=== PATIENT | female | born 1990 | race Caucasian/White ===

== ENCOUNTER → 2020-10-16 13:55 | Outpatient (CLI) | payer OTHER, SELFPAY ==
[2020-10-16 14:43] LABS: Adenovirus,PCR Not Detected (NotDetected); Bordetella Pertussis Not Detected (NotDetected); Chlamydophila Pneumoniae, PCR Not Detected (NotDetected); Coronavirus 19, PCR Not Detected (NotDetected); Coronavirus 229E Not Detected (NotDetected); Coronavirus NL63 Not Detected (NotDetected); Coronavirus OC43 Not Detected (NotDetected); Coronovirus HKU1,PCR Not Detected (NotDetected); Human Metapneumovirus Not Detected (NotDetected); Influenza A, PCR Not Detected (NotDetected); Influenza AH1, 2009 Not Detected (NotDetected); Influenza AH1, PCR Not Detected (NotDetected); Influenza AH3,PCR Not Detected (NotDetected); Influenza B, PCR Not Detected (NotDetected); Mycoplasma Pneumoniae, PCR Not Detected (NotDetected); Parainfluenza 1, PCR Not Detected (NotDetected); Parainfluenza 2, PCR Not Detected (NotDetected); Parainfluenza 3, PCR Not Detected (NotDetected); Parainfluenza 4, PCR Not Detected (NotDetected); Respiratory Syncytial Virus Not Detected (NotDetected); Rhinovirus/Enterovirus Not Detected (NotDetected)
== END ==
PROVIDERS: PCP Internal Medicine Adolescent Medicine; Visit Provider Nurse Practitioner Psychiatric/Mental Health
DX: Z03.818 Encounter for observation for suspected exposure to other biological agents ruled out (principal)
CPT/HCPCS: 87581; 87633; 87798; U0003

== ENCOUNTER → 2021-05-23 10:42 | Outpatient (CLI) | payer OTHER, SELFPAY ==
--- NOTE | 2021-05-23 10:45 | XR_ITS ---
PROCEDURE: XR FOOT WT BEARING LT 3V CLINICAL INDICATION: pain COMPARISON: No exams were available for comparison FINDINGS: No fracture or dislocation. No lytic or blastic change. There is normal mineralization. The joint spaces are well-preserved. No significant degenerative/arthritic changes. No erosive changes evident. Other findings:There is minimal hallux valgus with mild bunion formation/hypertrophy at the distal aspect of the 1st metatarsal. There is a small calcaneal IMPRESSION: Minimal hallux valgus bunion formation Dictated by: Luke Greenfield MD 05/23/2021 11:11 Luke Greenfield MD in [place] 05/23/2021 11:11
--- NOTE | 2021-05-23 10:45 | XR_ITS ---
PROCEDURE: XR ANKLE WT BEARING LT MIN 3V CLINICAL INDICATION: pain and instability COMPARISON: No exams were available for comparison FINDINGS: Bones: No fracture or dislocation. No lytic or blastic change. There is normal mineralization. Joints: The joint spaces are well-preserved. No significant degenerative/arthritic changes. No erosive changes evident. Other findings:None. IMPRESSION: No acute findings. Dictated by: Luke Greenfield MD 05/23/2021 11:10 Luke Greenfield MD in [facility] 05/23/2021 11:10
--- NOTE | 2021-05-23 10:45 | XR_ITS ---
PROCEDURE: XR ANKLE WT BEARING RT MIN 3V CLINICAL INDICATION: pain and instability COMPARISON: No exams were available for comparison FINDINGS: Bones: No fracture or dislocation. No lytic or blastic change. There is normal mineralization. Joints: The joint spaces are well-preserved. No significant degenerative/arthritic changes. No erosive changes evident. Other findings:None. IMPRESSION: No acute findings. Dictated by: Luke Greenfield MD 05/23/2021 11:09 Luke Greenfield MD in [facility] 05/23/2021 11:09
--- NOTE | 2021-05-23 10:45 | XR_ITS ---
PROCEDURE: XR FOOT WT BEARING RT 3V CLINICAL INDICATION: pain COMPARISON: No exams were available for comparison FINDINGS: No fracture or dislocation. No lytic or blastic change. There is normal mineralization. There is moderate hallux valgus with bunion formation. Other findings:None. IMPRESSION: Hallux valgus otherwise negative Dictated by: Luke Greenfield MD 05/23/2021 11:10 Luke Greenfield MD in [facility] 05/23/2021 11:10
== END ==
PROVIDERS: PCP Internal Medicine Adolescent Medicine; Visit Provider Nurse Practitioner
DX: M25.571 Pain in right ankle and joints of right foot (principal); M25.572 Pain in left ankle and joints of left foot
CPT/HCPCS: 73610; 73630

== ENCOUNTER → 2021-09-24 09:05 | Outpatient (CLI) | payer OTHER, SELFPAY ==
[2021-09-24 09:25] LABS: Coronavirus 19, PCR Not Detected (NotDetected); Influenza A, PCR Not Detected (NotDetected); Influenza B, PCR Not Detected (NotDetected)
== END ==
PROVIDERS: PCP Radiology Diagnostic Radiology; Visit Provider Nurse Practitioner
DX: Z20.822 Contact with and (suspected) exposure to COVID-19 (principal)
CPT/HCPCS: C9803; U0003; U0005

== ENCOUNTER → 2021-09-28 14:49 | Outpatient (CLI) | payer OTHER, SELFPAY ==
[2021-09-28 15:16] LABS: Coronavirus 19, PCR Not Detected (NotDetected); Influenza A, PCR Not Detected (NotDetected); Influenza B, PCR Not Detected (NotDetected)
== END ==
PROVIDERS: PCP Internal Medicine Adolescent Medicine; Visit Provider Nurse Practitioner
DX: Z20.822 Contact with and (suspected) exposure to COVID-19 (principal)
CPT/HCPCS: C9803; U0003; U0005

== ENCOUNTER → 2021-10-08 13:32 | Outpatient (CLI) | payer OTHER, SELFPAY ==
[2021-10-08 14:13] LABS: Influenza A, PCR Not Detected (NotDetected); Influenza B, PCR Not Detected (NotDetected)
[2021-10-08 16:01] LABS: Coronavirus 19, PCR Detected (NotDetected)
== END ==
PROVIDERS: PCP Radiology Diagnostic Radiology; Visit Provider Nurse Practitioner
DX: Z20.822 Contact with and (suspected) exposure to COVID-19 (principal); U07.1 COVID-19
CPT/HCPCS: C9803; U0003; U0005

== ENCOUNTER 2023-02-11 13:27 | Emergency (ER) | payer OTHER, SELFPAY ==
[2023-02-11 13:28] VITALS: BP 166/89; PULSE 75; RESP 18; TEMP 37; O2SAT 100; BMI 34.3
--- NOTE | 2023-02-11 13:45 | HMH.EDGENADL ---
Discharge Plan Disposition Patient Disposition: Home, Self-Care Prescriptions Prescriptions: No Action sertraline [Zoloft] 50 mg tablet 50 mg PO DAILY Qty: 90 0RF dextroamphetamine-amphetamine [Adderall XR] 25 mg capsule,extended release 24hr 25 mg PO DAILY Qty: 30 0RF Referrals Follow up/Referrals: Joshua Major MD [Primary Care Provider] - See instructions Activity Restrictions/Add. Instructions Additional Instructions/Restrictions: If you continue to have epigastric abdominal pain following eating I would follow-up with a class a regional truck driver for possible EGD. Return to the emergency department 12 to 24 hours with persistent or worsening symptoms as there remains diagnostic uncertainty but no obvious surgical emergency or abdominal emergency was found today's visit. Clinical Impressions Clinical Impression: Nonspecific abdominal pain Instructions Patient Instructions: DI for Acute Abdominal Pain Discharge ED Provider: Dakota Waters General Adult HPI General Chief complaint: Abdominal Pain Stated complaint: Severe abd pain Time Seen by Provider: 02/11/23 13:46 History of Present Illness HPI narrative: 32-year-old female presenting with abdominal pain. States has been ongoing since last weekend and slowly worsening over last 5 days. Epigastric in location radiating into her bilateral shoulder blades. Denies any laterality to this. She has noticed some pain after eating. No hematemesis or melena noted. No history of peptic ulcer disease or reflux that she is aware of. Denies any lower abdominal discomfort. Denies any changes in bowel movements urination or any vaginal bleeding or vaginal discharge. Has had some nausea and vomiting. No fevers or chills no chest pain or shortness of breath. No history of pancreatitis alcoholism hypertriglyceridemia or any other abnormalities associate with her pancreas. Related Data Previous Rx's Medication Instructions Recorded sertraline 50 mg tablet (Zoloft) 50 mg PO DAILY #90 tabs 11/13/22 dextroamphetamine-amphetamine ER 25 mg PO DAILY #30 caps 01/13/23 25 mg 24hr capsule,extend release (Adderall XR) Allergies Allergy/AdvReac Type Severity Reaction Status Date / Time No Known Drug Allergies Allergy Unknown Verified 11/18/22 13:33 [facility] Disclaimer: The information contained in this section may have been updated after the patient was seen, as this information can be updated by other users. Medical History (Updated 02/11/23 @ 17:03 by Dakota Waters MD) Attention deficit disorder (ADD) in adult Major depressive disorder Social History (Updated 11/18/22 @ 13:35 by Laura Nance APRN) Smoking Status: Never smoker alcohol intake: never substance use type: denies use current occupational status: employed Travel in the last 8 weeks: None number of children: 2 ROS Obtained: Yes All systems reviewed & no additional complaints except as documented Physical Exam General General appearance: alert and in no apparent distress Respiratory Respiratory exam: Present normal lung sounds bilaterally; Absent respiratory distress, wheezes or stridor Cardiovascular Cardiovascular exam: Present regular rate; Absent tachycardia Abdominal Exam Abdominal exam: Present soft and other (Tender to palpation mid epigastrium no rebound or guarding no right upper quadrant tenderness or tenderness elsewhere in her abdomen. Otherwise soft nontender nondistended no masses noted) Neurological Exam Neurological exam: Present alert and oriented X3 Medical Decision Making Liam Inquiry Pt receiving controlled substance: No Vital Signs: 02/11/23 13:28 02/11/23 14:32 02/11/23 15:01 Temperature 98.6 F Temperature Source Oral Pulse Rate 71 68 Pulse Rate [Right Radial] 75 Respiratory Rate 18 Blood Pressure 134/95 H 126/63 Blood Pressure [Right Arm] 166/89 H Blood Pressure Mean 122 78 Blood Pressure Mean [Right Arm] 114
--- NOTE | 2023-02-11 13:46 | PC.NURSE ---
SASCHA JUDGE at
[2023-02-11 14:05] LABS: Chloride 101 mmol/L (98-107); Sodium 138 mmol/L (136-145)
--- NOTE | 2023-02-11 14:06 | PC.NURSE ---
lights turned down in room, pt given warm blanket, call light within reach, pt aware of need of urine specimen
[2023-02-11 14:07] LABS: Alanine Aminotransferase 19 U/L (12-78); Aspartate Amino Transferase 29 U/L (14-36); Blood Urea Nitrogen 12 mg/dl (7-17); Creatinine Clearance Estimated 147 mL/min (50-200); Estimated Glomerular Filt Rate 84 ml/min (>60); GFR (African American) 102 ML/MIN (>60)
[2023-02-11 14:08] LABS: Albumin Level 4.5 g/dl (3.5-5.0); Albumin/Globulin Ratio 1.6 (1.1-1.8); Alkaline Phosphatase 54 U/L (38-126); Bilirubin,Total 0.6 mg/dl (0.2-1.3); Calcium 9.4 mg/dl (8.4-10.2); Carbon Dioxide 33 mmol/L (22.0-30.0); Globulin 2.9 g/dL (1.3-3.2); Glucose 91 mg/dl (74-100); Lipase 121 U/L (23-300); Total Protein,Serum 7.4 g/dl (6.3-8.2)
[2023-02-11 14:14] LABS: Basophils # 0.1 K/mm3 (0-0.2); Basophils % 1.1 % (0.1-2.0); Eosinophils # 0.1 K/mm3 (0.0-0.4); Eosinophils % 1.1 % (0.1-12.0); Hematocrit 42.3 % (37.0-47.0); Hemoglobin 13.8 g/dL (12.2-16.2); Lymphocytes # 2.5 K/mm3 (0.7-4.5); Lymphocytes % 40.3 % (10-50); Mean Corpuscular HGB Conc 32.6 g/dL (31.8-35.4); Mean Corpuscular Hemoglobin 32.4 pg (27.0-31.2); Mean Corpuscular Volume 99.2 fl (81-99); Mean Platelet Volume 7.8 fl (7.4-10.4); Monocytes # 0.4 K/mm3 (0.1-1.0); Monocytes % 5.7 % (1.7-9.3); Neutrophils # 3.3 K/mm3 (1.8-7.8); Neutrophils % 51.8 % (37.0-80.0); Platelet Count 274 K/mm3 (142-424); Red Blood Count 4.26 M/mm3 (4.20-5.40); White Blood Count 6.3 K/mm3 (4.8-10.8)
[2023-02-11 14:32] VITALS: BP 134/95; PULSE 71; O2SAT 100
--- NOTE | 2023-02-11 14:50 | PC.NURSE ---
checked on pt at this time, pt reports no improvement in symptoms. notified ER
[2023-02-11 15:01] VITALS: BP 126/63; PULSE 68; O2SAT 100
--- NOTE | 2023-02-11 15:08 | CT_ITS ---
PROCEDURE INFORMATION: Exam: CT Abdomen And Pelvis With Contrast Exam date and time: 02/11/2023 4:09 PM Age: 32 years old Clinical indication: Generalized; Prior surgery; Surgery date: 6+ months; Surgery type: (x2); Patient HX: Abdominal pain all over x 1 wk w C/O nausea. PT states the pain radiates around to her upper back. ; Additional info: Epigastric pain TECHNIQUE: Imaging protocol: Computed tomography of the abdomen and pelvis with contrast. Radiation optimization: All CT scans at this facility use at least one of these dose optimization techniques: automated exposure control; mA and/or kV adjustment per patient size (includes targeted exams where dose is matched to clinical indication); or iterative reconstruction. Contrast material: ISOVUE; Contrast volume: 70 ml; Contrast route: IV; REPORTING DATA: Count of CT and Cardiac NM exams in prior 12 months: This patient has received 0 known CTs and 0 known cardiac nuclear medicine studies in the 12 months prior to the current study. COMPARISON: No relevant prior studies available. FINDINGS: Lungs: Lung bases are unremarkable. Liver: No focal hepatic lesions. Gallbladder and bile ducts: Gallbladder is distended without radiopaque cholelithiasis. No biliary ductal dilation. Pancreas: No peripancreatic fluid stranding. No main pancreatic ductal dilation. Spleen: No splenomegaly. Adrenal glands: The adrenal glands are normal. Kidneys and ureters: Nephrograms are symmetric. No nephrolithiasis or hydroureteronephrosis on either side. No solid lesions Stomach and bowel: Distal small bowel loops are fluid filled which can be seen in the context of enteritis. Appendix: A normal appendix is identified. Intraperitoneal space: There is no evidence of free intraperitoneal or pelvic fluid. Vasculature: Aorta is nonaneurysmal. Lymph nodes: No evidence of retroperitoneal or mesenteric lymphadenopathy. Urinary bladder: Urinary bladder is unremarkable. Reproductive: Unremarkable as visualized. Bones/joints: Unremarkable. No acute fracture. Soft tissues: Unremarkable. IMPRESSION: Distal small bowel loops are fluid filled which can be seen in the context of enteritis.
[2023-02-11 15:31] VITALS: BP 120/48; PULSE 90; O2SAT 99
[2023-02-11 15:33] LABS: HCG Qualitative, Serum Negative (Negative)
--- NOTE | 2023-02-11 16:05 | PC.NURSE ---
contacted rad to check on status of ct scan, states they were waiting on test to result. Serum test is resulted in the computer. Maryam states will be over to take pt to CT
[2023-02-11 16:07] LABS: Microscopic, Urine URINE MICROSCOPIC (MICROSCOPIC)
[2023-02-11 16:10] LABS: Appearance,Urine CLEAR (Clear); Bilirubin,Urine Negative (Negative); Blood, Urine Negative (Negative); Color,Urine YELLOW (Yellow); Glucose,Urine (UA) Negative (Negative); Ketones,Urine Negative (Negative); Leukocyte Esterase,Urine Negative (Negative); Nitrate,Urine Negative (Negative); Protein,Urine Negative (Negative); Urobilinogen,Urine 0.2 EU/dl (0.2)
--- NOTE | 2023-02-11 16:46 | PC.NURSE ---
contacted rad to check on status of ct result. states [facility]rad is in reading the scan now
--- NOTE | 2023-02-11 16:47 | PC.NURSE ---
checked on pt at this time, updated pt scan is being read now. visitor at bs. Pt states no needs at this time, reports still having pain when i offered to ask er md for more pain medication, pt reports does not want any more pain medication at this time.
[2023-02-11 16:50] LABS: Urine Pregnancy, HCG Qual. Negative (Negative)
[2023-02-11 16:50] LABS: RBC,Urine Occasional #/hpf (0-3); WBC,Urine Occasional #/hpf (0-3)
[2023-02-11 17:27] VITALS: BP 134/80; PULSE 84; RESP 18; TEMP 37; O2SAT 100
== END 2023-02-11 17:27 | disposition home or self-care (01) ==
PROVIDERS: Emergency Provider Student in an Organized Health Care Education/Training Program; PCP Internal Medicine Adolescent Medicine
DX: R10.13 Epigastric pain (principal); F90.9 Attention-deficit hyperactivity disorder, unspecified type; F33.9 Major depressive disorder, recurrent, unspecified
CPT/HCPCS: 74177; 80053; 81001; 81025; 83690; 84703; 85025; 96361; 96374; 96375; 99284; 99285; J2405; Q9967

== ENCOUNTER → 2023-03-03 09:22 | Outpatient (CLI) | payer OTHER, SELFPAY ==
--- NOTE | 2023-03-03 09:25 | US_ITS ---
FINAL REPORT CLINICAL HISTORY: abd pain after eating FINDINGS: ULTRASOUND RIGHT UPPER QUADRANT Sonographic imaging of the right upper quadrant was obtained. The pancreas is partially obscured. The liver is unremarkable. There are several folds in the gallbladder. There is no evidence of gallstones. There is no gallbladder wall thickening. There is no biliary ductal dilatation. The common duct is normal at 4 mm. Limited images of the right kidney are unremarkable. IMPRESSION: Pancreas not well visualized. No gallstones. Reviewed, Interpreted and Dictated by Flroentin Marcus MD Transcribed by Afia Batista Authenticated and [facility]
== END ==
LOC: RAD 09:22
PROVIDERS: PCP Internal Medicine Adolescent Medicine; Visit Provider Nurse Practitioner
DX: R10.9 Unspecified abdominal pain (principal); R11.2 Nausea with vomiting, unspecified
CPT/HCPCS: 76705

== ENCOUNTER → 2023-03-10 06:13 | Outpatient (CLI) | payer OTHER, SELFPAY ==
--- NOTE | 2023-03-10 06:14 | NM_ITS ---
FINAL REPORT CLINICAL HISTORY: abd pain neg u/s gb 6:35 am 8.17 mci tc choletec 7:47 am 1.8 mcg of cck injected into rt ant no pain during cck FINDINGS: Sequential anterior projection images of the abdomen were obtained after the intravenous injection of 8.17 mCi technetium 99m Choletec. There is normal uptake of radiotracer by the liver. The bile ducts are visualized by 5 minutes. Gallbladder activity is seen by 5 minutes. Bowel activity is noted by 35 minutes. After 1 hour, 1.0 ?g of CCK was injected intravenously for calculation of gallbladder ejection fraction. The gallbladder ejection fraction is 98 %, which is within normal limits. IMPRESSION: No evidence of cystic duct or bile duct obstruction. Normal gallbladder ejection fraction of 98 %. Reviewed, Interpreted and Dictated by Sg Young III, MD Transcribed by Hawa Pollack Authenticated and [facility]
[2023-03-10 09:50] LABS: Urine Pregnancy, HCG Qual. Negative (Negative)
[2023-03-10 09:55] LABS: Basophils % 0.8 % (0.1-2.0); Eosinophils # 0.1 K/mm3 (0.0-0.4); Eosinophils % 1.5 % (0.1-12.0); Hematocrit 43.4 % (37.0-47.0); Hemoglobin 14.3 g/dL (12.2-16.2); Lymphocytes # 2.1 K/mm3 (0.7-4.5); Lymphocytes % 39.1 % (10-50); Mean Corpuscular HGB Conc 32.9 g/dL (31.8-35.4); Mean Corpuscular Hemoglobin 32.6 pg (27.0-31.2); Mean Corpuscular Volume 99.2 fl (81-99); Mean Platelet Volume 7.8 fl (7.4-10.4); Monocytes # 0.3 K/mm3 (0.1-1.0); Monocytes % 5.1 % (1.7-9.3); Neutrophils # 2.9 K/mm3 (1.8-7.8); Neutrophils % 53.4 % (37.0-80.0); Platelet Count 262 K/mm3 (142-424); Red Blood Count 4.38 M/mm3 (4.20-5.40); Red Cell Distribution Width 12.9 % (11.5-17.5); White Blood Count 5.4 K/mm3 (4.8-10.8)
[2023-03-10 10:07] LABS: Alanine Aminotransferase 17 U/L (12-78); Albumin Level 4.3 g/dl (3.5-5.0); Albumin/Globulin Ratio 1.5 (1.1-1.8); Alkaline Phosphatase 59 U/L (38-126); Anion Gap 6.1 mEq/L (5-15); Aspartate Amino Transferase 25 U/L (14-36); Bilirubin,Total 0.5 mg/dl (0.2-1.3); Blood Urea Nitrogen 13 mg/dl (7-17); Calcium 8.7 mg/dl (8.4-10.2); Carbon Dioxide 30 mmol/L (22.0-30.0); Chloride 103 mmol/L (98-107); Estimated Glomerular Filt Rate 98 ml/min (>60); GFR (African American) 119 ML/MIN (>60); Globulin 2.8 g/dL (1.3-3.2); Glucose 86 mg/dl (74-100); Potassium 4.1 mmoL/L (3.5-5.1); Sodium 135 mmol/L (136-145); Total Protein,Serum 7.1 g/dl (6.3-8.2)
== END ==
PROVIDERS: PCP Internal Medicine Adolescent Medicine; Visit Provider Surgery
DX: R10.9 Unspecified abdominal pain (principal); R11.2 Nausea with vomiting, unspecified
CPT/HCPCS: 36415; 78227; 80053; 81025; 85025; A9537; J2805

== ENCOUNTER 2023-03-11 07:13 | Day surgery (SDC) | payer OTHER, SELFPAY ==
[2023-03-10 14:47] VITALS: BMI 34.3
[2023-03-11] VITALS (10 sets, daily range): BP systolic 113–148; BP diastolic 60–78; PULSE 60–97; RESP 16–18; TEMP 36.4–43; O2SAT 93–100
--- NOTE | 2023-03-11 07:30 | EXP.ANES.CKL ---
[facility] Disclaimer: The information contained in this section may have been updated after the patient was seen, as this information can be updated by other users. Medical History Attention deficit disorder (ADD) in adult Major depressive disorder Nausea & vomiting Surgical History History of Family History Other Family history of COPD (chronic obstructive pulmonary disease) Family history of cancer Family history of gallbladder disease Social History Smoking Status: Never smoker alcohol intake: current counseling given: No substance use type: denies use current occupational status: employed Travel in the last 8 weeks: None household members: children housing: house lives independently: Yes marital status: single number of children: 2 education level: college caffeine: Yes special jaden needs: No agree to transfusion: No do you feel safe at home: Yes victim of physical abuse: No victim of emotional abuse: No victim of sexual abuse: No would you like helpful sources: No [facility] Anesthesia Checklist Patient Identification Patient Identification: Arm Band and Verbal (Name & ) Structural Data Admitted From: Home Planned Operative Procedure/s: Gibran. ross Consent for Planned Operative Procedure(s) Verified: Yes NPO Status Verified Time NPO: 00:00 Chart Verification Results Verified: HCG Additional verifications Anesthesia Reactions: Yes (PONV - Scop patch) Airway Assessment C-Spine Mobility Assessed: Yes TMJ Mobility Assessed: Yes Dentition: Good Dentition Neurological Assessment Level of Consciousness: Awake Hx Seizures: No Numbness or tingling in extremities: No Anesthesia Plan Anesthesia Risk discussed: Yes Anesthesia Plan: Verified ASA Class: II Anesthesia Type: General
--- NOTE | 2023-03-11 09:13 | P.OP_ITS ---
Date of procedure: 03/11/23 Pre-op Diagnosis:: Biliary dyskinesia Post-op Diagnosis:: Chronic cholecystitis Procedure performed:: Laparoscopic cholecystectomy Surgeon:: Garry Garcia MD JEWELRY DRILLING MACHINE OPERATOR:: Boston Valle Anesthesia: SHARON Estimated blood loss (mL): 15 Operative findings:: Infundibular thickening Operative note:: After informed consent was obtained, the patient was taken to the operating room and placed in the supine position. General anesthesia was induced and the abdomen was prepped and draped in a sterile fashion. After infiltration with local anesthetic an infraumbilical incision was made. A Veress needle was placed in position. The abdomen was insufflated. A 5 mm optical trocar was placed in position. Under direct visualization, a 12 mm trocar was placed in the subxiphoid position and 2 additional 5 mm trocars were placed in the right upper quadrant. The gallbladder was elevated up and over the liver margin. The tissue around the cystic duct was carefully dissected. 3 clips were placed p roximally and the duct was transected with harmonic maksim. Harmonic maksim were then utilized to dissect the gallbladder away from the liver margin with careful attention to the control of the cystic artery. The gallbladder was placed in a retrieval bag and removed through the subxiphoid trocar site. The right upper quadrant was thoroughly irrigated. No active bleeding or bile leak was noted. Fascia at the subxiphoid trocar site was reapproximated utilizing the NeoClose device. The remaining trocars were removed. All wounds were irrigated and skin was closed with 4-0 Monocryl in a mattress fashion to facilitate hemostasis. Steri-Strips were applied. The patient's anesthetic agents were reversed and extubation was completed prior to transfer to recovery in stable condition. Condition: stable Disposition: PACU Specimens:: Gallbladder and contents Complications:: No immediate
--- NOTE | 2023-03-11 09:23 | P.PNANES_ITS ---
[facility] Anesthesia Record Part I Anesthesia Record I Intake, IV Amount: 800 Estimated blood loss (mL): 10 Urine output (mL): 0 Blood Pressure: 119/63 SaO2: 93 Pulse Rate: 84 Respiratory Rate: 18 Temperature: 97.6 F Patient is:: Drowsy and Oral/Nasal airway Stable to PACU at:: 09:23
--- NOTE | 2023-03-11 11:05 | P.PNANES_ITS ---
[facility] Anesthesia Record Part II Anesthesia Record Part II Discharge Time: 09:53 Destination: Surgical Day Care (OP Surgery) PACU nurse assessment reviewed?: Yes Patient Condition:: Good Anesthesia Complications:: None Swallowing reflex intact?: Yes Cyanosis?: No Blood Pressure: 117/75 Pulse Rate: 71 Temperature: 97.9 F Mental Status: Alert & Oriented Pain level:: 0 Nausea and/or vomitting:: None Intake, IV Amount: 0
== END 2023-03-11 10:30 | disposition home or self-care (01) ==
PROVIDERS: PCP Internal Medicine Adolescent Medicine; Visit Provider Surgery
PROC: 0FT44ZZ Resection of Gallbladder, Percutaneous Endoscopic Approach (ICD-10-PCS; CPT 47562; principal; 2023-03-11 08:45)
DX: K80.10 Calculus of gallbladder with chronic cholecystitis without obstruction (principal); K82.8 Other specified diseases of gallbladder
CPT/HCPCS: 47562; 96374; J0131; J2405

== ENCOUNTER → 2023-10-29 10:05 | Outpatient (CLI) | payer OTHER, SELFPAY ==
[2023-10-29 11:28] LABS: Barbiturates Screen,Urine Negative ng/ml (<200)
[2023-10-29 11:29] LABS: Benzodiazepines Screen,Urine Negative ng/ml (<200)
[2023-10-29 11:30] LABS: Amphetamine/Metha Screen,Urine Positive ng/ml (<1000); Methadone Screen,Urine Negative ng/ml (<300)
[2023-10-29 11:31] LABS: Cannabinoid Screen,Urine Negative ng/ml (<50); Cocaine Screen,Urine Negative ng/ml (<300)
[2023-10-29 11:33] LABS: Opiate Screen,Urine Negative ng/ml (<300); Phencyclidine Screen,Urine Negative ng/ml (<25)
== END ==
PROVIDERS: PCP Internal Medicine Adolescent Medicine; Visit Provider Nurse Practitioner Psychiatric/Mental Health
DX: Z51.81 Encounter for therapeutic drug level monitoring (principal); Z79.899 Other long term (current) drug therapy
CPT/HCPCS: 80305

== ENCOUNTER 2024-04-12 09:31 | Outpatient (CLI) | payer OTHER, SELFPAY ==
[2024-04-12] MEDS: LACTATED RINGERS 1000ML 1,000 ML 999 ML IV (09:31)
[2024-04-12] MEDS: ONDANSETRON 4MG/2ML VIAL 4 MG IV (09:31)
== END 2024-04-12 10:00 | disposition home or self-care (01) ==
LOC: UTC.OUT 09:32
PROVIDERS: Visit Provider Nurse Practitioner
DX: E86.0 Dehydration (principal)
CPT/HCPCS: 96365; 96374; J2405; J7120

== ENCOUNTER 2025-04-04 10:03 | Day surgery (SDC) | payer OTHER, SELFPAY ==
[2025-03-28 13:09] VITALS: BMI 39.1
[2025-04-04] MEDS: LACTATED RINGERS 1000ML 1,000 ML 50 ML IV (10:22)
[2025-04-04 10:33] VITALS: BP 131/66; PULSE 59; RESP 17; TEMP 36.1; O2SAT 100
--- NOTE | 2025-04-04 10:51 | P.PNANES_ITS ---
[facility] Disclaimer: The information contained in this section may have been updated after the patient was seen, as this information can be updated by other users. Medical History Nausea & vomiting Major depressive disorder Attention deficit disorder (ADD) in adult Surgical History History of laparoscopic cholecystectomy History of Family History Other Family history of COPD (chronic obstructive pulmonary disease) Family history of cancer Family history of gallbladder disease Social History Smoking Status: Never smoker alcohol intake: current alcohol intake frequency: holidays/special occasions only counseling given: No substance use type: denies use current occupational status: employed Travel in the last 8 weeks?: None household members: children housing: house lives independently: Yes marital status: single number of children: 2 education level: college caffeine: Yes special jaden needs: No agree to transfusion: No do you feel safe at home: Yes victim of physical abuse: No victim of emotional abuse: No victim of sexual abuse: No would you like helpful sources: No Have you lived/traveled outside [place] in past 30 days?: No Contact w/someone who lives/traveled outside US past 30 days?: No Exposure to someone with infectious disease in past 14 days?: No Do you have a fever (greater than 100.4 F or 38 C)?: No Have you tested positive for COVID-19?: No Exposed to someone with COVID-19 in past 14 days?: No Do you have a sore throat?: No Do you have a cough?: No Do you have any weakness?: No Do you have any diarrhea?: No Are you experiencing any unusual bleeding?: No Do you have any muscle aches/pain?: No Do you have any abdominal pain?: No Are you experiencing loss of taste or smell?: No [facility] Anesthesia Checklist Patient Identification Patient Identification: Arm Band Structural Data Admitted From: Home Planned Operative Procedure/s: Colonoscopy Consent for Planned Operative Procedure(s) Verified: Yes Verified Documents: Surgical Consent and History and Physical NPO Status Verified Time NPO: 06:00 (finished prep) Additional verifications Anesthesia Reactions: Yes (PONV - Scop patch) Hx Blood Transfusions: No Blood Transfusion Reaction: No Airway Assessment Mallampati Score:: Class II C-Spine Mobility Assessed: Yes TMJ Mobility Assessed: Yes Dentition: Good Dentition Neurological Assessment Level of Consciousness: Awake, Alert and Appropriate Anesthesia Plan Anesthesia Risk discussed: Yes Anesthesia Plan: Verified ASA Class: II Anesthesia Type: MAC
[2025-04-04 11:03] LABS: Urine Pregnancy, HCG Qual. Negative (Negative)
--- NOTE | 2025-04-04 11:06 | EXP.HP ---
History of Present Illness *Admission Date: 04/04/25 *History of present illness: Mrs. Flanagan is a 34-year-old female with longstanding constipation which has worsened. She does get some generalized abdominal pain in the upper and lower abdomen with gassiness and bloating. She also has had nausea. The patient was seen in the GI office with CLARA Fofana in January 2023 2 years ago. At that time, her HIDA scan had shown 98% gallbladder ejection fraction and the patient did eventually have cholecystectomy for gallbladder hyperkinesia. The patient has been using milk of magnesia daily. Without the milk of magnesia she would not have bowel movements. She does report longer periods of time on the commode with incomplete defecation and excessive wiping. She does have occasional straining. Without the milk of magnesia she would have very hard bowel movements but they are softer with the milk of magnesia. She reports no rectal bleeding, weight loss or family history of colon cancer. She does occasionally see mucus with her bowel movements. She did have cholecystectomy in 2022 but this did not improve bowel function. [facility] Disclaimer: The information contained in this section may have been updated after the patient was seen, as this information can be updated by other users. Medical History Nausea & vomiting Major depressive disorder Attention deficit disorder (ADD) in adult Surgical History History of laparoscopic cholecystectomy History of Family History Other Family history of COPD (chronic obstructive pulmonary disease) Family history of cancer Family history of gallbladder disease Social History Smoking Status: Never smoker alcohol intake: current alcohol intake frequency: holidays/special occasions only counseling given: No substance use type: denies use current occupational status: employed Travel in the last 8 weeks?: None household members: children housing: house lives independently: Yes marital status: single number of children: 2 education level: college caffeine: Yes special jaden needs: No agree to transfusion: No do you feel safe at home: Yes victim of physical abuse: No victim of emotional abuse: No victim of sexual abuse: No would you like helpful sources: No Have you lived/traveled outside [place] in past 30 days?: No Contact w/someone who lives/traveled outside [place] past 30 days?: No Exposure to someone with infectious disease in past 14 days?: No Do you have a fever (greater than 100.4 F or 38 C)?: No Have you tested positive for COVID-19?: No Exposed to someone with COVID-19 in past 14 days?: No Do you have a sore throat?: No Do you have a cough?: No Do you have any weakness?: No Do you have any diarrhea?: No Are you experiencing any unusual bleeding?: No Do you have any muscle aches/pain?: No Do you have any abdominal pain?: No Are you experiencing loss of taste or smell?: No Other Medical History Have you received the Pneumonia Vaccine: No Review of Systems Review of Systems Review of systems (narrative): Negative *Cardiovascular Comments: Negative *Gastrointestinal Comments: Negative *Genitourinary Comments: Negative *Musculoskeletal Comments: Negative *Neurologic Comments: Negative Meds Home Medications and Allergies Home Medications ?Medication ?Instructions ?Recorded ?Confirmed ?Type linaclotide 145 mcg capsule 145 mcg PO DAILY #30 caps 02/27/25 04/04/25 Rx (Linzess) omeprazole 40 mg capsule,delayed 40 mg PO DAILY 02/27/25 04/04/25 History release lisdexamfetamine 30 mg capsule 30 mg PO DAILY #30 caps 03/08/25 04/04/25 Rx (Vyvanse) sodium,potassium,mag sulfates 17.5 See Rx Instructions PO .COMPLEX 03/21/25 03/30/25 Rx gram-3.13 gram-1.6 gram oral soln #354 mL (Suprep Bowel Prep Kit) dextroamphetamine-amphetamine 10 10 mg PO DAILY #30 tabs 04/02/25 04/04/25 Rx mg tablet (Adderall) dextroamphetamine-amphetamine ER 20 mg PO DAILY #30 caps 04/02/25 04/04/25 Rx 20 mg 24hr capsule,extend release (Adderall XR) New Prescriptions to Start Prescriptions: Allergies Allergy/AdvReac Type Severity Reaction Status Date / Time No Known Allergies Allergy Verified 04/04/25 10:30 Exam Data for Last 24 hours Vital signs and Labs for Last 24 Hours: Temp Pulse Resp BP Pulse Ox O2 Del Method 97 F L 59 L 17 131/66 100 Room Air 04/04/25 10:33 04/04/25 10:33 04/04/25 10:33 04/04/25 10:33 04/04/25 10:33 04/04/25 10:33 Laboratory Results - last 24 hr 04/04/25 10:15: Urine HCG, Qual Negative *Routine HEENT Exam Head: Present normocephalic Eye: Present EOMI and PERRL ENT: Present mucous membranes moist *Routine Neck Exam Neck: Present supple *Routine Respiratory Exam Respiratory: Present CTA bilaterally *Routine Cardiovascular Exam Cardiovascular: Present RRR *Routine Abdominal Exam Abdominal: Present soft and normoactive bowel sounds; Absent tenderness *Routine Rectal Exam Rectal:: deferred *Routine Genitalia Exam Genitalia:: deferred *Routine Extremities Exam Extremities: Absent cyanosis, clubbing or edema *Routine Skin Exam Skin: Present warm; Absent rash *Routine Neurological Exam Neurological: Present alert and oriented X3 Assessment and Plan *Assessment and plan (1) Bloating: Status: Acute Category: Medical Code(s): R14.0 - Abdominal distension (gaseous) (2) Generalized abdominal discomfort: Status: Acute Category: Medical Code(s): R10.84 - Generalized abdominal pain (3) Irritable bowel syndrome with constipation: Status: Acute Category: Medical Code(s): K58.1 - Irritable bowel syndrome with constipation (4) Change in bowel habits: Status: Acute Category: Medical Code(s): R19.4 - Change in bowel habit Plan A/P: 1. Worsening constipation/change in bowel habits is the preprocedural diagnosis. The patient will be anesthetized/sedated using MAC sedation. The patient has been seen and examined. Cardiac and lung assessment prior to the examination is stable. Proceed with planned colonoscopy.
--- NOTE | 2025-04-04 11:08 | P.PCN_ITS ---
[facility] Procedure Note Date: 04/04/25 Time: 11:22 Procedure Note:: Colonoscopy Procedure Report: Colonoscopy Endoscopist: Justice Mendes II, MD Referring physician: None Date of Procedure: April 04, 2025 Equipment: Olympus 190 variable stiffness pediatric colonoscope Sedation: MAC sedation Indication: Mrs. Flanagan is a 34-year-old female who is here for diagnostic colonoscopy. She has had longstanding constipation which has worsened. She does get some generalized abdominal pain in the upper and lower abdomen with gassiness and bloating. She also has had nausea. The patient was seen in the GI office with CLARA Fofana in January 2023 2 years ago. At that time, her HIDA scan had shown 98% gallbladder ejection fraction and the patient did eventually have cholecystectomy for gallbladder hyperkinesia. The patient has been using milk of magnesia daily. Without the milk of magnesia she would not have bowel movements. She does report longer periods of time on the commode with incomplete defecation and excessive wiping. She does have occasional straining. Without the milk of magnesia she would have very hard bowel movements but they are softer with the milk of magnesia. She reports no rectal bleeding, weight loss or family history of colon cancer. She does occasionally see mucus with her bowel movements. She did have cholecystectomy in 2022 but this did not improve bowel function. Procedure: Prior to the procedure, a history and physical exam was performed, and patient's medications and allergies were reviewed. The risks, benefits and alternatives of the sedation and procedure were discussed with the patient. All questions were answered and informed consent was obtained. The patient was brought to the procedure room. Patient identification and proposed procedure were verified by the physician and the nurse. The patient was placed in a left lateral decubitus position and the scope was passed under direct vision. Throughout the procedure, the patient's blood pressure, pulse, and oxygen saturations were monitored continuously. The colonoscopy was accomplished without difficulty. The patient tolerated the procedure well. Findings: On digital rectal examination there was normal rectal tone. There were no external hemorrhoids. There was an anterior rectocele. The colonoscope was introduced through the anal canal to the rectum and advanced to the cecum. The ileocecal valve and appendiceal orifice were identified. The scope was advanced a short distance into the ileum which appeared grossly normal. The scope was then withdrawn into the colon. The cecum, ascending, transverse, descending, sigmoid and rectum were grossly normal. There were no mucosal abnormalities identified. Upon retroflexion within the rectum there were grade 1-2 internal hemorrhoids. The preparation was excellent throughout with [place] Preparation Score of 9. The cecal time was 10 minutes. Impression: 1. Normal colonoscopy with intubation of the terminal ileum 2. Grade 1-2 internal hemorrhoids 3. Anterior rectocele Plan: The patient does have outlet dysfunction constipation and weakness of the pelvic floor/defecatory musculature. It is often in the setting where we see a rectocele. I would now recommend pelvic floor physical therapy.
[2025-04-04 11:09] VITALS: O2SAT 100
[2025-04-04 11:23] VITALS: BP 116/59; PULSE 83; RESP 20; TEMP 36.2; O2SAT 100
[2025-04-04 11:33] VITALS: BP 119/76; PULSE 76; RESP 20; O2SAT 100
[2025-04-04 11:43] VITALS: BP 133/76; PULSE 77; RESP 20; O2SAT 100
[2025-04-04 11:53] VITALS: BP 122/72; PULSE 66; RESP 17; TEMP 36.2; O2SAT 100
== END 2025-04-04 12:27 | disposition home or self-care (01) ==
PROVIDERS: Visit Provider Internal Medicine Gastroenterology
PROC: 0DJD8ZZ Inspection of Lower Intestinal Tract, Via Natural or Artificial Opening Endoscopic (ICD-10-PCS; CPT 45378; principal; 2025-04-04 11:30)
DX: K58.1 Irritable bowel syndrome with constipation (principal); R10.84 Generalized abdominal pain; R14.0 Abdominal distension (gaseous); R19.4 Change in bowel habit; R11.0 Nausea; N81.6 Rectocele; K64.8 Other hemorrhoids
CPT/HCPCS: 45378; 81025; J7120